=== PATIENT | male | born 2000 | race Hispanic/Latino ===

== ENCOUNTER → 2023-10-27 | Emergency (ER) | payer OTHER ==
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
[2023-10-27 20:44] VITALS: BP 118/68; TEMP 97.2; O2SAT 100
== END ==
LOC: ER 18:51
DX: S09.90XA Unspecified injury of head, initial encounter (principal)
CPT/HCPCS: 70450; 99283